=== PATIENT | female | born 1995 | race Caucasian/White ===

== ENCOUNTER → 2021-03-05 10:36 | Outpatient (BNVA) | payer OTHER, MEDICAID, SELFPAY | PROVIDERS: Visit Provider Advanced Practice Midwife ==

== ENCOUNTER 2021-03-06 11:11 | Outpatient (REF) | payer OTHER, SELFPAY ==
--- NOTE | ~2021-03-06 | US_ITS ---
EXAMINATION: OBSTETRICAL ULTRASOUND, FIRST TRIMESTER HISTORY: 25-year-old at 5.5 weeks of gestation Viability LMP: 01/25/2021 COMPARISON: None TECHNIQUE: Real time transabdominal imaging with color and M-mode Doppler. Transvaginal ultrasound was performed using an endovaginal probe. FINDINGS: An empty intrauterine gestational sac was noted. The mean sac diameter is 1.2 cm consistent with 6.0 weeks of gestation. No yolk sac or embryo were seen. While this could be normal for this gestational age, the possibility of blighted ovum or missed AB cannot be ruled out. Both maternal ovaries are seen and appear normal. GESTATIONAL AGE: 1. GA from LMP: 5.5 wks 2. GA from AUA: 6.0 wks ESTIMATED DATE OF DELIVERY: 1. MARIA EUGENIA from LMP: 11/01/2021 2. MARIA EUGENIA from AUA: 10/30/2021 US/US OB pelvic and transvaginal IMPRESSION: 1. An empty intrauterine gestational sac 2. No yolk sac or embryonic pole seen 3. Normal ovaries Discussion: I informed the patient that today's ultrasound findings can be consistent with early gestation. However it could also be suggestive of a missed AB. Serial serum beta-hCG is recommended. The first sample was taken today. A follow-up ultrasound has not been scheduled. However a repeat exam in approximately one week should be considered. Thank you very much for this referral. Total time 20 minutes. The time spent was devoted to counseling the patient about the disease and diagnosis, coordinating care including reviewing her records, pertinent lab data and studies, as well as discussing diagnostic evaluation and workup, plan therapeutic interventions and future disposition of care. This includes any additional research needed to obtain further information in formulating the plan of care of this patient. This note was generated with a voice recognition program. Please excuse any errors which may have been overlooked during my review of this note. Sometimes these errors may affect the content or meaning of a given sentence.
[2021-03-06 14:00] LABS: HCG Quantitative 13685 mIU/mL
== END 2021-03-06 11:12 | disposition home or self-care (01) ==
LOC: HO.US 11:11
PROVIDERS: Advanced Practice Midwife; Visit Provider Obstetrics & Gynecology
DX: Z34.90 Encounter for supervision of normal pregnancy, unspecified, unspecified trimester (principal)
CPT/HCPCS: 36415; 76801; 76817; 84702

== ENCOUNTER 2021-03-09 12:05 | Outpatient (REF) | payer OTHER, SELFPAY ==
[2021-03-09 14:29] LABS: HCG Quantitative 27973 mIU/mL
== END 2021-03-09 12:06 | disposition home or self-care (01) ==
LOC: HO.LAB 12:05
PROVIDERS: Visit Provider Advanced Practice Midwife
DX: Z34.90 Encounter for supervision of normal pregnancy, unspecified, unspecified trimester (principal)
CPT/HCPCS: 36415; 84702

== ENCOUNTER 2021-10-22 13:35 | Outpatient (REF) | payer OTHER, MEDICAID, SELFPAY | END 2021-10-22 13:36 | disposition home or self-care (01) | LOC: HO.HMGCLDS 13:35 | PROVIDERS: Visit Provider Internal Medicine | DX: Z20.822 Contact with and (suspected) exposure to COVID-19 (principal) | CPT/HCPCS: C9803; U0003; U0005 ==